=== PATIENT | female | born 1990 | race Caucasian/White ===

== ENCOUNTER 2023-07-01 12:48 | Emergency (ER) | payer OTHER ==
[~2023-07-01] VITALS: Ht 154.9 cm; Wt 82.0 kg
[2023-07-01 13:14] VITALS: BP 121/65; PULSE 60; RESP 18; TEMP 98.6; O2SAT 100
[2023-07-01 14:06] LABS: CLARITY URINE CLOUDY (CLEAR); COLOR URINE YELLOW (YELLOW); GLUCOSE URINE NEGATIVE (NEGATIVE); KETONES URINE NEGATIVE (NEGATIVE); LEUKOCYTE ESTERASE URINE 1+ (NEGATIVE); NITRITE URINE POSITIVE (NEGATIVE); OCCULT BLOOD URINE 2+ (NEGATIVE); PH URINE 5.5 (4.5-8.0); PROTEIN URINE 1+ (NEGATIVE); SPECIFIC GRAVITY URINE 1.025 (1.005-1.030); UROBILINOGEN URINE 0.2 E.U./dL (0.2-1.0)
[2023-07-01 14:30] LABS: MUCUS URINE TRACE /lpf (< = 2+)
[2023-07-01 14:31] LABS: BACTERIA URINE 1+; SQUAMOUS EPITHELIAL CELL URINE RARE /lpf (RARE/1+)
[2023-07-01 14:34] LABS: WBC URINE 25-50 /hpf (0-2)
[2023-07-01] MEDS ORDERED: LEVO-65 MT (16:02)
== END 2023-07-01 16:11 | disposition home or self-care (01) ==
LOC: ER 12:48
DX: R31.9 Hematuria, unspecified (principal)
CPT/HCPCS: 81003; 81025; 87077; 87186; 99283

== ENCOUNTER 2024-12-10 18:26 | Emergency (ER) | payer MEDICAID, OTHER ==
[~2024-12-10] VITALS: Ht 162.6 cm; Wt 127.0 kg
[~2024-12-10 18:26] MED LIST: LEVO-65 MT
[2024-12-10 18:44] VITALS: BP 127/56; PULSE 87; RESP 16; TEMP 36.8; O2SAT 98; O2SAT 99
[2024-12-10] MEDS ORDERED: DICYCLOMINE 10 MG/5 ML ORAL SYR PO STA (20:08)
[2024-12-10] MEDS: ONDANSETRON 4MG ODT PO STA (20:30)
[2024-12-10] MEDS: DICYCLOMINE HCL 10MG CAPSULE PO NR (20:30)
[2024-12-10 20:55] LABS: BASOPHILS % 0.5 % (0.0-2.0); EOSINOPHILS % 3.4 % (0.0-5.0); HEMATOCRIT. 41.7 % (36.0-48.0); HEMOGLOBIN. 13.8 g/dL (12.0-16.0); MEAN CORPUSCULAR HEMOGLOBIN 27.9 pg (28.0-32.0); MEAN CORPUSCULAR HGB CONC 33.1 g/dL (31.0-37.0); MEAN CORPUSCULAR VOLUME 84.1 fL (81.0-99.0); MEAN PLATELET VOLUME 8.9 fl (7.4-10.4); MONOCYTES % 6.8 % (2.0-8.0); NEUTROPHILS % 63.3 % (40.0-76.0); PLATELET 201 x1000/uL (130-400); RED BLOOD CELL COUNT 4.97 mill/uL (4.2-5.4); RED CELL DISTRIBUTION WIDTH 13.1 % (11.6-14.6); WHITE BLOOD COUNT 7.1 x1000/uL (4.5-11.0)
[2024-12-10 21:05] LABS: CHLORIDE 107 mEq/L (98-107); POTASSIUM 3.5 mEq/L (3.5-5.1); SODIUM 141 mEq/L (136-145)
[2024-12-10 21:06] LABS: CARBON DIOXIDE 26 mEq/L (21-32)
[2024-12-10 21:11] LABS: CREATININE 0.5 mg/dL (0.6-1.0)
[2024-12-10 21:12] LABS: GLUCOSE 123 mg/dL (70-105); UREA NITROGEN BLOOD 11 mg/dL (9-23)
[2024-12-10 21:16] LABS: HCG SCREEN NEGATIVE
[2024-12-10 21:18] LABS: CLARITY URINE CLOUDY (CLEAR); COLOR URINE YELLOW (YELLOW); GLUCOSE URINE NEGATIVE (NEGATIVE); KETONES URINE TRACE (NEGATIVE); LEUKOCYTE ESTERASE URINE NEGATIVE (NEGATIVE); NITRITE URINE NEGATIVE (NEGATIVE); OCCULT BLOOD URINE NEGATIVE (NEGATIVE); PH URINE 5.5 (4.5-8.0); PROTEIN URINE NEGATIVE (NEGATIVE); SPECIFIC GRAVITY URINE 1.036 (1.005-1.030)
[2024-12-10 21:40] LABS: CALCIUM OXALATE CRYSTALS URINE 2+ /lpf
[2024-12-10 21:41] LABS: BACTERIA URINE NONE SEEN; RBC URINE NONE SEEN /hpf (0-2); SQUAMOUS EPITHELIAL CELL URINE FEW /lpf (RARE/1+); WBC URINE NONE SEEN /hpf (0-2)
[2024-12-11] MEDS ORDERED: NAPR-1486 MT (00:27)
== END 2024-12-11 02:24 | disposition home or self-care (01) ==
LOC: ER 18:26
DX: R10.31 Right lower quadrant pain (principal); Z98.51 Tubal ligation status; Z79.899 Other long term (current) drug therapy
CPT/HCPCS: 99284; 76856; 76830; 80048; 81003; 84703; 83690; 85025; 36415; 76857; Q0162